=== PATIENT | female | born 1935 | race Caucasian/White ===

== ENCOUNTER → 2016-09-20 | Outpatient (CLI) | payer MEDICARE, OTHER | END | disposition home or self-care (01) | LOC: GMAL 10:31 | PROVIDERS: ATTEND Family Medicine | DX: M10.9 Gout, unspecified (principal) ==

== ENCOUNTER → 2016-12-22 | Outpatient (CLI) | payer MEDICARE, OTHER | LOC: GMAL 10:17 | PROVIDERS: ATTEND Family Medicine | DX: E03.9 Hypothyroidism, unspecified (principal); M10.9 Gout, unspecified ==

== ENCOUNTER → 2017-01-26 | Outpatient (CLI) | payer MEDICARE, OTHER ==
--- NOTE | 2017-01-26 16:28 | MAM ---
EXAM DESCRIPTION: 3D Screening BILATERAL CLINICAL HISTORY: 82 yearsFemaleSCREENING. Postmenopausal. HRT five or more years ago. Breast benign biopsy. COMPARISON: Digital screening bilateral examination 01/18/2016 and 12/24/2014. No prior reports available. TECHNIQUE: Bilateral CC and MLO projection full-field images, 3-D tomosynthesis digital mammographic technique. Also bilateral synthesized CC/ MLO full-field images. CAD not utilized. FINDINGS: The breast parenchymal density pattern is: Heterogeneously dense breast tissue, which may obscure small masses. No skin thickening or nipple retraction bilateral vascular calcifications. Again noted is an oval-shaped mass on the medial aspect of the posterior third of the right breast at the 300 clock position less than 2 cm from the skin surface. Unchanged. Oval-shaped focal asymmetry in the anterior third of the left breast approximately 3 focal asymmetry in the posterior third of the left breast at the 1200 clock position not well seen on the prior studies. Almost 1 cm diameter. Small calcification anterior. Cm from the nipple is stable. No new mass or density , and no suspicious microcalcifications bilaterally. IMPRESSION: BI-RADS CATEGORY: 0 - INCOMPLETE- Need additional imaging evaluation. FOLLOW-UP: Recall for additional imaging: Full field lateral medial 3-D tomosynthesis Imaging of interest in the posterior third lower inner quadrant of the right breast in the 1200 clock position of the posterior third of the left breast. Targeted bilateral breast ultrasound. Written communication explaining the results and follow-up will be mailed to the patient and referring care provider. Electronically signed by: Maurisio King MD 01/26/2017 4:27 PM CDT Workstation: [id number]
== END ==
LOC: MAMMO 09:27
PROVIDERS: ATTEND Family Medicine
DX: Z12.31 Encounter for screening mammogram for malignant neoplasm of breast (principal)

== ENCOUNTER → 2017-02-15 | Outpatient (CLI) | payer MEDICARE, OTHER ==
--- NOTE | 2017-02-15 15:21 | US ---
EXAM DESCRIPTION: Breast,Left CLINICAL HISTORY: 82 years Female, recent screening mammogram showed possible abnormality upper aspect left breast at 12:00 COMPARISON: January 26, 2017 mammogram FINDINGS: Real-time ultrasound of the left breast performed by me shows no solid, cystic, or worrisome abnormality. The abnormality in question on the mammogram is a region of dense breast parenchyma. IMPRESSION: BIRAD CATEGORY: 1 NEGATIVE Electronically signed by: Vargas Mcclain MD 02/15/2017 3:19 PM CDT Workstation: [id number]
== END | disposition home or self-care (01) ==
LOC: MAMMO 08:00
PROVIDERS: ATTEND Family Medicine
DX: R92.8 Other abnormal and inconclusive findings on diagnostic imaging of breast (principal)

== ENCOUNTER → 2017-06-20 | Outpatient (CLI) | payer MEDICARE, OTHER | END | disposition home or self-care (01) | LOC: GMAL 10:43 | PROVIDERS: ATTEND Family Medicine | DX: D51.3 Other dietary vitamin B12 deficiency anemia (principal); E03.9 Hypothyroidism, unspecified; E55.9 Vitamin D deficiency, unspecified ==

== ENCOUNTER → 2017-08-24 | Outpatient (CLI) | payer MEDICARE, OTHER | LOC: GMAL 10:17 | PROVIDERS: ATTEND Family Medicine | DX: E03.9 Hypothyroidism, unspecified (principal) ==

== ENCOUNTER → 2018-03-01 | Outpatient (CLI) | payer MEDICARE, OTHER ==
--- NOTE | 2018-03-05 08:32 | MAM ---
EXAM DESCRIPTION: 3D Screening BILATERAL : Digital Mammography. CLINICAL HISTORY: 83 years Female ANNUAL SCREENING . No personal or family history of breast cancer. Childbirth. Postmenopausal. Has taken HRT 5 or more years ago. Prior left breast biopsy. Lifetime risk of developing breast cancer (Tyrer-Cuzick model) is 2.1 %. COMPARISON: Bilateral screening breast digital tomosynthesis 01/26/2017. Targeted left breast ultrasound 02/15/2017.. No prior reports available. TECHNIQUE: Bilateral CC and MLO projection full-field images, Digital tomosynthesis mammographic technique. Bilateral digital 2-D full-field MLO images. CAD not utilized. FINDINGS: The breast parenchymal density pattern is: Heterogeneously dense breast tissue, which may obscure small masses. No skin thickening or nipple retraction. Bilateral vascular calcifications. Bilateral solitary microcalcifications. Stable benign appearing mass density in the posterior lower inner quadrant of the right breast. Benign-appearing groups of calcifications in the left breast. No new focal, stellate mass or density, focal asymmetry , and no suspicious microcalcifications bilaterally. Stable mammograms compared to prior study. Taking into account, differences in mammographic technique. IMPRESSION: BI-RADS CATEGORY: 2 - BENIGN FINDINGS. FOLLOW UP: Routine digital bilateral screening, one year interval from February 2018. Written communication explaining the IMPRESSION and follow-up, will be mailed to the patient and referring health care provider. According to the [employer], yearly mammograms are recommended starting at age 40 and continuing as long as a woman is in good health. Any breast change noted on a breast self-exam should be reported promptly to the patient's healthcare provider. Breast MRI is recommended for women with an approximately 20-25% or greater lifetime risk of breast cancer, including women with a strong family history of breast or ovarian cancer and women who have been treated for Hodgkin's disease. A negative mammographic report should not delay tissue diagnosis in patients with significant clinical history or physical findings. Extremely dense breast tissue limits the sensitivity of digital mammography. Electronically signed by: Maurisio King MD 03/05/2018 8:30 AM CDT
== END ==
LOC: MAMMO 08:30
PROVIDERS: ATTEND Family Medicine
DX: Z12.31 Encounter for screening mammogram for malignant neoplasm of breast (principal)

== ENCOUNTER → 2018-09-24 | Outpatient (CLI) | payer MEDICARE, OTHER | LOC: GMAL 11:13 | PROVIDERS: ATTEND Family Medicine | DX: D51.3 Other dietary vitamin B12 deficiency anemia (principal); E03.9 Hypothyroidism, unspecified; E55.9 Vitamin D deficiency, unspecified ==

== ENCOUNTER → 2019-02-04 | Outpatient (CLI) | payer MEDICARE, OTHER | LOC: GMAL 10:24 | PROVIDERS: ATTEND Family Medicine | DX: E03.8 Other specified hypothyroidism (principal) ==

== ENCOUNTER → 2019-05-01 | Outpatient (CLI) | payer MEDICARE, OTHER | LOC: GMAL 12:29 | PROVIDERS: ATTEND Family Medicine | DX: E03.9 Hypothyroidism, unspecified (principal); I10 Essential (primary) hypertension; E78.49 Other hyperlipidemia ==

== ENCOUNTER → 2019-10-17 | Outpatient (CLI) | payer MEDICARE, OTHER | LOC: GMAL 12:01 | PROVIDERS: ATTEND Family Medicine | DX: D51.3 Other dietary vitamin B12 deficiency anemia (principal); E03.9 Hypothyroidism, unspecified; E55.9 Vitamin D deficiency, unspecified; E78.49 Other hyperlipidemia; M10.9 Gout, unspecified; Z79.899 Other long term (current) drug therapy ==

== ENCOUNTER → 2020-08-03 | Outpatient (CLI) | payer MEDICARE, OTHER | LOC: GMAL 11:59 | PROVIDERS: ATTEND Family Medicine | DX: E03.9 Hypothyroidism, unspecified (principal); Z79.899 Other long term (current) drug therapy; E78.49 Other hyperlipidemia ==